=== PATIENT | male | born 1990 | race Caucasian/White ===

== ENCOUNTER 2021-08-24 17:05 | Emergency (ER) | payer OTHER, SELFPAY ==
[2021-08-24 17:20] VITALS: BP 172/83; PULSE 81; RESP 16; TEMP 36.8; O2SAT 96; BMI 22.1
--- NOTE | 2021-08-24 18:21 | PC.NURSE ---
Dr. Clarke at bedside speaking with patient.
--- NOTE | 2021-08-24 18:25 | ED.PSYCH ---
HPI - Psych General Chief Complaint: Psychiatric Symptoms Stated Complaint: crisis Time Seen by Provider: 08/24/21 17:45 Source: patient Mode of arrival: ambulatory Limitations: no limitations History of Present Illness HPI Narrative: Pt comes th the ED by ambulance. EMS was called because the patient has been complaining of feeling off. EMS reports that the patient talk to his mother, who recommended that the patient talks to a clinician , which he did in [place]. Patient came to emergency room via EMS. Patient denies any physical complaints, states that he has history of depression and anxiety, has been medications for several months. The patient reports that he has been feeling off for couple of days. Patient denies suicidal or homicidal ideation the care team spoke to the mother, seems that patient had a similar episode approximately 1 month ago. Related Data Allergies Allergy/AdvReac Type Severity Reaction Status Date / Time egg Allergy Unknown Verified 08/24/21 18:03 lactase [From Dairy Aid] Allergy Unknown Verified 08/24/21 18:03 Review of Systems Review of Systems: Constitutional : No Weight loss, No Fever, No Chills, No Night Sweats, No Fatigue, No Malaise ENT/Mouth : No Hearing loss, No Ear Pain, No Nasal Congestion, No Sinus Pain, No Hoarseness, No sore throat, No Rhinorrhea, No Swallowing Difficulty Eyes: No Eye Pain, No Swelling, No Redness, No Foreign Body, No Discharge, No Vision Changes Cardiovascular : No Chest Pain, No SOB, No Dyspnea on Exertion, No Orthopnea, No Edema, No Palpitations Respiratory : No Cough, No Sputum, No Wheezing, No Smoke Exposure, No Dyspnea Gastrointestinal : No Nausea, No Vomiting, No Diarrhea, No Constipation, No abdominal Pain, No Hematochezia, No Melena Genitourinary : no irregular bleeding, No Dysuria, No Urinary Frequency, No Hematuria, No Urinary Incontinence, No Urgency, No Flank Pain, No Urinary Flow Changes, No Hesitancy Musculoskeletal : No joint pain, No Myalgias, No Joint Swelling Skin : No Skin Lesions, No rash Neuro : No Weakness, No Numbness, No Paresthesias, No Loss of Consciousness, No Dizziness, No Headache Psych : complaining of feeling off No Anxiety/Panic, No Depression, No SI/HI/AH/VH, No Social Issues, Heme/Lymph: No Bruising, No Bleeding,No Lymphadenopathy Endocrine : No Polyuria, No Polydipsia, No Temperature Intolerance [facility] Past Medical History Medical History (Updated 08/24/21 @ 18:30 by Carlee Clarke MD) Anxiety and depression Social History Social History Advance Directives: No Advance Directives Information Provided: No Physical Exam Vital Signs: Vital Signs: Last Vital Signs Temp 98.3 F 08/24/21 17:20 Pulse 81 08/24/21 17:20 Resp 16 08/24/21 17:20 BP 172/83 H 08/24/21 17:20 Pulse Ox 96 08/24/21 17:20 O2 Del Method 08/24/21 17:20 BMI result Body Mass Index 22.1 Const: Other: Appearance: Alert. Oriented X3. No acute distress. Eyes: Pupils equal, round and reactive to light. ENT: Pharynx normal. Neck: Normal inspection. Neck supple. No lymph nodes noted. No crepitus CVS: Normal heart rate and rhythm. Pulses normal. Normal S1 and S2 Respiratory: No respiratory distress. Breath sounds normal. No Wheezing. No rales Abdomen: Soft and nontender. No rigidity. No distention. Skin: Skin warm and dry. Normal skin color. Normal skin turgor. Extremities: No lower extremity edema. No Lacerations. No Rash Neuro: Oriented X 3. No motor deficit. No sensory deficit. Moving all extremities. No slurred speech. CN 2 through 12 grossly intact Psych: calm, cooperative, flat affect Course Course Course Narrative: labs pending. behavioral health network consult pending. Patient denies SI or HI. Physician observationStarted at 18:30 Discharge Plan Discharge Clinical Impression: Altered behavior Patient Disposition: Still a Patient
[2021-08-24 18:50] LABS: Appearance Urine HAZY; Color Urine YELLOW; Glucose Urine UA NEG (NEG); Leukocyte Esterase Urine NEG (NEG); Nitrite Urine NEG (NEG); Urine Blood NEG (NEG); Urine Ketones 15 MG/DL (NEG); Urine Protein NEG (NEG-TRACE)
[2021-08-24 18:54] LABS: COVID-19 Test Negative (Negative)
[2021-08-24 19:01] LABS: Amphetamine Screen Urine Not Detected (Not Detect); Barbiturates, Urine Not Detected (Not Detect); Benzodiazepines Screen Urine Not Detected (Not Detect); Cannabinoid Screen Urine Not Detected (Not Detect); Cocaine Screen Urine Not Detected (Not Detect); Fentanyl, urine Not Detected (Not Detect); Opiate Screen Urine Not Detected (Not Detect); Phencyclidine Screen Urine Not Detected (Not Detect)
[2021-08-24 19:12] LABS: Ethanol < 10 mg/dL
[2021-08-24 19:16] LABS: Alanine Aminotransferase 21 U/L (0-40); Albumin Level 4.8 g/dL (3.5-5.0); Alkaline Phosphatase 78 U/L (39-117); Anion Gap 14 (12-20); Aspartate Amino Transferase 18 U/L (5-37); Bilirubin Direct 0.4 mg/dL (0.0-0.5); Blood Urea Nitrogen 18 mg/dL (9-16); Calcium 9.6 mg/dL (8.4-10.2); Carbon Dioxide 25 mmol/L (22-29); Chloride 105 mmol/L (96-108); Creatinine Clr Calc Pharmacy 130.5; Estimated Glomerular Filt Rate > 60; Glucose Random 94 mg/dL (60-115); Potassium 3.8 mmol/L (3.3-5.1); Sodium 140 mmol/L (135-145); Total Protein 7.5 g/dL (6.5-8.0)
--- NOTE | 2021-08-25 02:05 | MHC.CARE ---
CARE team completed evaluation. Plan of care is for inpt psychiatric admission. Pt's mother is advocating that he be discharged to her care and requested that he be seen by psychiatry in the morning. Pt was initially agreeable for treatment, however after speaking with his mother he has said that he wishes to leave the hospital. Pt is on a Section 12a for safety and containment pending facility admission and/or psychiatry evaluation. See CARE team evaluation for rationale.
[2021-08-25] MEDS: Melatonin 3 MG TABLET 6 MG PO (03:32)
[2021-08-25 05:54] VITALS: RESP 16
--- NOTE | 2021-08-25 05:55 | PC.NURSE ---
Addendum entered by Salvador Lawler RN 08/25/21 06:38: Patient refused blood draw only Original Note: Patient was up all night, in and out of room multiple times, Melatonin 6 mg administered at 0332 with no effect, patient well engaged with care team clinician, disposition per care team section 12 inpatient bed search, patient refused labs and vital sign assessment, thought content disorganized, mother visit went well, no distress observed/reported, behavior non concerning, will continue to monitor.
--- NOTE | 2021-08-25 07:09 | PC.NURSE ---
patient appears to remain asleep at present respirations are even and unlabored patient appears in no distress
[2021-08-25 07:33] VITALS: BP 146/90; PULSE 78; RESP 17; TEMP 36.1; O2SAT 98
--- NOTE | 2021-08-25 11:12 | MHC.CARE ---
Lengthy conversation with patient?s mother at her request. She advocated for the psychiatric provider meet with her son as early as possible, asked many questions about the process. Mother explained at length how well her son did while staying at the [facility] in [facility] and believes that patient needs to return to that environment to heal. She stated that he denied having suicidal ideation today and feels he is safe to leave with her. Assured patient?s mother that the decision for an inpatient admission is not lightly considered and is based on the individual?s need and wishes, as well as family input. Safest in the least restrictive environment are the prioritized.
--- NOTE | 2021-08-25 13:11 | P.CNPS_ITS ---
History of Present Illness Date of Service: 08/25/2021 Chief Complaint: crisis Reason for Consult: paranoia, psychosis Requesting physician: Yari Coulter Discussed with referring provider: Yes Sources of Information: patient interviewed, chart reviewed and crisis/core team assessment reviewed HPI Narrative: Mr. Holder is a 31 year-old male who was brought via EMS to [facility] ED from his OP therapist due to patient presenting as off, confused disoriented. Pt recently had episode which he describes as confusing driving to [place] thinking people were talking about him. Pt reports that at therapist room, he was scanning the room, that he had sat in different chair as the one he usually sits on. He reports this time I was seeing therapist as a person, not a therapist. when asked to elaborate, but presents with long paused, later unable to provide more details. In the ED, his utox is negative. Pt's mother, Loreto is by his side and present during interview. Loreto reports that few weeks ago pt presented as paranoia, suspicious of others and thinking that someone was after him. She reports she thinks this is due to stress as there was a construction work going on next to her house. Pt does report not feeling safe, at one point when asked where he lives, he looks around and states he can't tell exact address in public place. He appears suspicious and internally preoccupied. He does denied suicidal or homicidal ideation. Mother denies any safety concerns and wants to bring pt back home. She reports she hopes that if he goes to spiritual/meditation retreat he will be fine. Pt and mother educated on symptoms of psychosis, podromal symptoms of what could be a schizophrenia spectrum disorder. This automobile and property underwriter explained benefit of inpatient, although at this point it would be volutary as there is no imminent safety concern. Past Psychiatric History: Inpatient: none OP: Therapist Andreina Alcantar Past trials: sertraline, adderall. Medical Evaluation Reviewed: Yes Review of Systems Review of Systems Constitutional : No Weight loss, No Fever, No Chills, No Night Sweats, No Fatigue, No Malaise ENT/Mouth : No Hearing loss, No Ear Pain, No Nasal Congestion, No Sinus Pain, No Hoarseness, No sore throat, No Rhinorrhea, No Swallowing Difficulty Eyes: No Eye Pain, No Swelling, No Redness, No Foreign Body, No Discharge, No Vision Changes Cardiovascular : No Chest Pain, No SOB, No Dyspnea on Exertion, No Orthopnea, No Edema, No Palpitations Respiratory : No Cough, No Sputum, No Wheezing, No Smoke Exposure, No Dyspnea Gastrointestinal : No Nausea, No Vomiting, No Diarrhea, No Constipation, No abdominal Pain, No Hematochezia, No Melena Genitourinary : no irregular bleeding, No Dysuria, No Urinary Frequency, No Hematuria, No Urinary Incontinence, No Urgency, No Flank Pain, No Urinary Flow Changes, No Hesitancy Musculoskeletal : No joint pain, No Myalgias, No Joint Swelling Skin : No Skin Lesions, No rash Neuro : No Weakness, No Numbness, No Paresthesias, No Loss of Consciousness, No Dizziness, No Headache Psych : complaining of feeling off No Anxiety/Panic, No Depression, No SI/HI/AH/VH, No Social Issues, Heme/Lymph: No Bruising, No Bleeding,No Lymphadenopathy Endocrine : No Polyuria, No Polydipsia, No Temperature Intolerance [facility] Medical History (Updated 08/25/21 @ 13:30 by Sophia Magallanes) Anxiety and depression Family History: pt and mother denied Social History: lives with mother on and off. Just finished associate degree in nursing. No children. He has a sibling. Substance History: None Trauma History: Denies Diagnostics Vital Signs (24Hr): Vital Signs - 24 hr 08/24/21 17:20 08/25/21 05:54 08/25/21 07:33 Temperature 98.3 F 96.9 F Pulse Rate 81 78 Respiratory Rate 16 16 17 Blood Pressure 172/83 H 146/90 H Pulse Oximetry 96 98 Oxygen Delivery Method Room Air Room Air BMI result Body Mass Index 22.1 Labs Results: 08/24/21 18:44 Labs: Laboratory Results - last 48 hr 08/24/21 08/24/21 08/24/21 18:29 18:29 18:30 Sodium Potassium Chloride Carbon Dioxide Anion Gap BUN Creatinine Estim Creat Clear Calc Estimated GFR Random Glucose Calcium Total Bilirubin Direct Bilirubin AST ALT Alkaline Phosphatase Total Protein Albumin Urine Color YELLOW Urine Appearance HAZY Urine pH 6.0 Ur Specific [place] 1.010 Urine Protein NEG Urine Glucose (UA) NEG Urine Ketones 15 Urine Blood NEG Urine Nitrite NEG Ur Leukocyte Esterase NEG Urine Opiates Screen Not Detected Urine Fentanyl Screen Not Detected Ur Barbiturates Screen Not Detected Ur Phencyclidine Scrn Not Detected Ur Amphetamines Screen Not Detected U Benzodiazepines Scrn Not Detected Urine Cocaine Screen Not Detected U Marijuana (THC) Screen Not Detected Ethyl Alcohol COVID-19 ([facility]ESSA) Negative COVID-19 [employer] Com See Note 08/24/21 08/24/21 18:44 18:44 Sodium 140 Potassium 3.8 Chloride 105 Carbon Dioxide 25 Anion Gap 14 BUN 18 H Creatinine 0.90 Estim Creat Clear Calc 130.5 Estimated GFR > 60 Random Glucose 94 Calcium 9.6 Total Bilirubin 4.0 H Direct Bilirubin 0.4 AST 18 ALT 21 Alkaline Phosphatase 78 Total Protein 7.5 Albumin 4.8 Urine Color Urine Appearance Urine pH Ur Specific [place] Urine Protein Urine Glucose (UA) Urine Ketones Urine Blood Urine Nitrite Ur Leukocyte Esterase Urine Opiates Screen Urine Fentanyl Screen Ur Barbiturates Screen Ur Phencyclidine Scrn Ur Amphetamines Screen U Benzodiazepines Scrn Urine Cocaine Screen U Marijuana (THC) Screen Ethyl Alcohol < 10 COVID-19 ([facility]) COVID-19 Clin Com Medications Allergies Allergies Allergy/AdvReac Type Severity Reaction Status Date / Time egg Allergy Unknown Verified 08/24/21 18:03 lactase [From Dairy Aid] Allergy Unknown Verified 08/24/21 18:03 Assessment & Plan Assessment & Plan (1) Psychosis: Status: Acute Code(s): F29 - Unspecified psychosis not due to a substance or known physiological condition Plan Mr. Holder is a 31 year-old male who was sent to [facility] ED via secta from therapist office as pt has been presenting with symptoms of paranoia, suspiciousness, delayed response rate, disorganized speech, constricted affect, appears internally preoccupied and thought blocking. Pt in ED, presents as constricted, delayed speech, paranoia evidenced by him not wanting to disclose where he lives as he thinks others will hear, thought blocking. He denies SI/HI. No signs of aggression towards self or others. MOther wants to take him home and denies any safety concerns. Education provided to both pt and mother about Mr. Holder present ing with what appears to be psychotic disorder r/o schizophrenia as symptoms develop. Utox is negative. Recommended head CT given fairly recent onset of psychosis- part of medical work up- but mother and pt declines. Mother denies any safety concerns and wants to bring pt back home. She reports s he hopes that if he goes to spiritual/meditation retreat he will be fine. Pt and mother educated on symptoms of psychosis, podromal symptoms of what could be a schizophrenia spectrum disorder. This automobile and property underwriter explained benefit of inpatient, although at this point it would be volutary as there is no imminent safety concern. PLAN 1. No imminent safety concern in terms of suicidal or homicidal ideation, or gravely disable due to psychiatric symptoms although pt clearly presents with active psychiatric symptoms including psychomotor retardation, internally preoccupied, paranoia, but no aggression towards self or others. Pt agrees to go to mother's house. 2. Mother reports she will find services for pt including psychiatric care. Declined referrals. I spent _25 minutes with the patient and/or on the patient floor today, greater than?50% of which was spent counseling/coordinating care.
== END 2021-08-25 14:48 | disposition home or self-care (01) ==
PROVIDERS: Emergency Provider Emergency Medicine
DX: F33.1 Major depressive disorder, recurrent, moderate (principal); F29 Unspecified psychosis not due to a substance or known physiological condition; F91.9 Conduct disorder, unspecified; F41.9 Anxiety disorder, unspecified; F43.9 Reaction to severe stress, unspecified; Z20.822 Contact with and (suspected) exposure to COVID-19; Z79.899 Other long term (current) drug therapy
CPT/HCPCS: 36415; 80048; 80076; 80307; 81003; 82077; 87635; 99284; 99285